=== PATIENT | female | born 1985 | race Caucasian/White ===

== ENCOUNTER 2022-05-01 11:03 | Emergency (ER) | payer MEDICAID ==
[~2022-05-01] VITALS: Ht 154.9 cm; Wt 63.6 kg
[~2022-05-01 11:03] MED LIST: NO HOME MEDS
[2022-05-01] MEDS ORDERED: LIDOcaine Viscous 15ml cup MM ONE (14:15)
[2022-05-01] MEDS ORDERED: sucralfate 1 gm tablet PO ONE (14:15)
[2022-05-01] MEDS ORDERED: mag hydrox/Alum hydrox/simeth 30ml oral suspension PO ONE (14:15)
[2022-05-01 15:10] VITALS: BP 136/85
== END 2022-05-01 15:05 | disposition home or self-care (01) ==
LOC: ER 11:03
DX: R07.9 Chest pain, unspecified (principal); F17.200 Nicotine dependence, unspecified, uncomplicated; Z88.1 Allergy status to other antibiotic agents; Z88.0 Allergy status to penicillin
CPT/HCPCS: 71046; 93005; 93971; 99284; 99285

== ENCOUNTER 2024-05-29 13:37 | Emergency (ER) | payer SELFPAY ==
[~2024-05-29] VITALS: Ht 154.9 cm; Wt 68.7 kg
[2024-05-29 14:23] LABS: BASOPHILS # (AUTO) 0.1 X10'3 (0-0.2); BASOPHILS % (AUTO) 0.8 % (0-1); EOSINOPHILS # (AUTO) 0.2 X10'3 (0-0.9); EOSINOPHILS % (AUTO) 2.5 % (0-6); HEMATOCRIT 41.6 % (35.0-45.0); HEMOGLOBIN 14.2 g/dl (12.0-16.0); LYMPHOCYTES # (AUTO) 1.7 X10'3 (1.1-4.8); LYMPHOCYTES % (AUTO) 24.2 % (21-51); MEAN CORPUSCULAR HGB CONC 34.2 g/dL (33.0-36.5); MEAN CORPUSCULAR VOLUME 90.4 FL (78-98); MONOCYTES # (AUTO) 0.5 X10'3 (0-0.9); MONOCYTES % (AUTO) 7.7 % (2-12); NEUTROPHILS # (AUTO) 4.5 X10'3 (1.8-7.7); NEUTROPHILS % (AUTO) 64.8 % (42-75); PLATELET COUNT 338 X10'3 (140-440); WHITE BLOOD COUNT 6.9 X10'3 (4.5-11.0)
[2024-05-29 14:46] LABS: ALANINE AMINOTRANSFERASE 21 U/L (12-78); ALBUMIN 4.1 G/DL (3.4-5.0); ALBUMIN/GLOBULIN RATIO 1.1 (1.1-1.5); ALKALINE PHOSPHATASE 72 IU/L (46-116); ANION GAP 9 (8-16); ASPARTATE AMINO TRANSFERASE 21 U/L (10-37); BILIRUBIN,TOTAL 0.5 MG/DL (0.1-1.0); BLOOD UREA NITROGEN 16 MG/DL (7-18); BUN/CREATININE RATIO 23.5 (10.0-20.0); C-REACTIVE PROTEIN 0.07 MG/DL (0.0-0.5); CHLORIDE 103 MMOL/L (99-107); CREATININE 0.68 MG/DL (0.40-0.90); GLUCOSE 124 MG/DL (70-104); POTASSIUM 3.6 MMOL/L (3.5-5.1); SODIUM 137 MMOL/L (135-145); TOTAL PROTEIN 7.8 G/DL (6.4-8.2); URIC ACID 4.2 MG/DL (2.5-6.2); eCRCL 84 ML/MIN; eGFR > 90 ML/MIN
[2024-05-29] MEDS ORDERED: calcium gluconate inj. 3 GM in normal saline 100ml IV soln 100 ML IV ONE (15:20)
[2024-05-29 15:52] LABS: LIPASE 32 U/L (16-77)
[2024-05-29] MEDS: CALCIUM GLUC 1gm/50ml NACL,iso 50 ML IV ONE ×3 (15:58→17:38)
[2024-05-29 18:37] VITALS: BP 156/79; PULSE 92; RESP 16; TEMP 98; O2SAT 99
== END 2024-05-29 18:39 | disposition home or self-care (01) ==
LOC: ER 13:38
DX: M79.672 Pain in left foot (principal); E83.51 Hypocalcemia; F17.210 Nicotine dependence, cigarettes, uncomplicated; Z88.1 Allergy status to other antibiotic agents
CPT/HCPCS: 36415; 73630; 80053; 83690; 83735; 83970; 84100; 84550; 85025; 85651; 86140; 93005; 96365; 96366; 99285; J0610; 99284